=== PATIENT | female | born 1955 | race Caucasian/White ===

== ENCOUNTER → 2017-06-12 | Outpatient (CLI) | payer BC ==
--- NOTE | 2017-06-12 19:59 | BD ---
EXAMINATION TYPE: MG DEXA axial skeleton. DATE OF EXAM: 06/12/2017 COMPARISON: 09/09/2013 CLINICAL HISTORY: 62-year-old female osteoporosis Height: 61.2 IN Weight: 155 LBS FRAX RISK QUESTIONS: Alcohol (3 or more units per day): NO Family History (Parent hip fracture): NO Glucocorticoids (More than 3mos): NO (Ex: prednisone, prednisolone, methylprednisolone, dexamethasone, and hydrocortisone). History of Fracture in Adulthood: NO Secondary Osteoporosis: 1. Type 1 Diabetes: NO 2. Hyperthyroidism: NO 3. Menopause before 45: NO AGE 49 4. Malnutrition: NO 5. Chronic liver disease: NO Rheumatoid Arthritis: NO Current Tobacco Use: NO RISK FACTORS HISTORY OF: Active: YES Postmenopausal woman: AGE 49 Take estrogen and/or progesterone medications: NOT NOW How long: OFF AND ON AGE 16 - 29 MEDICATIONS: Thyroid Medications: YES Which medication: LEVOXYL How Lon + YEARS Additional Medications: VIT D, LEVOXYL, MOTRIN, NIACIN EXAM MEASUREMENTS: Bone mineral densitometry was performed using the [employer] System. Bone mineral density as measured about the Lumbar spine is: ----- L1-L4(G/cm2): 1.134 T Score Values are as follows: ----- L2: 0.2 ----- L3: -0.9 ----- L4: -0.3 ----- L1-L4: -0.4 Bone mineral density has: Increased 2.6% since study of: 09/09/2013 Bone mineral density about the R hip (g/cm2): 0.815 Bone mineral density about the L hip (g/cm2): 0.832 T Score values are as follows: -----R Neck: -1.6 -----L Neck: -1.5 -----R Total: -0.6 -----L Total: -1.1 Bone mineral density has: Decreased -0.8% since study of: 09/09/2013 IMPRESSION: Osteopenia (T Score between -2.5 and -1 as noted by T score values There is slightly increased risk of fracture and the patient may be considered for treatment. Re-Screen 2-5 years. NOTE: T-SCORE=SD OF THE YOUNG ADULT MEAN.
--- NOTE | 2017-06-14 10:02 | MM ---
Reason for exam: screening (asymptomatic). Last mammogram was performed 2 years and 3 months ago. History: Patient is postmenopausal and has history of other cancer at age 39. Cyst aspiration of the left breast, 2003. Took hormonal contraceptives for 12 years beginning at age 15. Physical Findings: A clinical breast exam by your physician is recommended on an annual basis and results should be correlated with mammographic findings. MG Screening Mammo w CAD Bilateral CC and MLO view(s) were taken. Prior study comparison: March 20, 2015, bilateral MG screening mammo w CAD. November 13, 2013, bilateral digital screening mammo w/CAD. The breast tissue is heterogeneously dense. This may lower the sensitivity of mammography. No significant changes when compared with prior studies. ASSESSMENT: Negative, BI-RAD 1 RECOMMENDATION: Routine screening mammogram of both breasts in 1 year.
== END | disposition home or self-care (01) ==
LOC: RADMAMWWP 14:56
PROVIDERS: ATTEND Internal Medicine Geriatric Medicine
DX: Z12.31 Encounter for screening mammogram for malignant neoplasm of breast (principal); M85.852 Other specified disorders of bone density and structure, left thigh; M85.851 Other specified disorders of bone density and structure, right thigh
CPT/HCPCS: 77080; G0202

== ENCOUNTER → 2019-06-20 | Outpatient (CLI) | payer BC, MEDICARE ==
--- NOTE | 2019-06-20 12:40 | ECHOS ---
STRESS ECHOCARDIOGRAM INDICATIONS: Chest pain. BASELINE HEART RATE: 69. BASELINE. BLOOD PRESSURE: 132/74 MAXIMUM HEART RATE: 137 MAXIMUM BLOOD PRESSURE: 186/87 85% MPHR: 132 100% MPHR: 155 METS: 11.7 MAXIMUM STAGE REACHED: 4 TOTAL EXERCISE TIME: 10:01 CLINICAL INFORMATION: Baseline EKG shows sinus rhythm, normal axis, normal intervals. Patient exercised on Hayden protocol for a total of 10 minutes achieving 11 METS, 85% of predicted maximum heart rate without chest pain. At peak exercise, occasional PVCs are noted. Baseline echo shows normal left ventricular size. wall motion, systolic function. Postexercise, there is normal hyperdynamic response of all segments of myocardium noted. CONCLUSION: 1. Excellent exercise tolerance. 2. Negative stress test by EKG criteria. 3. Negative stress echo. MMODL / IJN: [id number] /
== END ==
LOC: RADNMMAIN 09:12
PROVIDERS: ATTEND Internal Medicine Geriatric Medicine
DX: I20.9 Angina pectoris, unspecified (principal)
CPT/HCPCS: 93351

== ENCOUNTER → 2019-07-25 | Outpatient (CLI) | payer MEDICARE ==
--- NOTE | 2019-07-25 14:24 | BD ---
EXAMINATION TYPE: Axial Bone Density DATE OF EXAM: 07/25/2019 COMPARISON: 06.12.2017 CLINICAL HISTORY: 64 YR OLD FEMALE....ICD-10 CODE: M81.0 KNOWN OSTEOPOROSIS Height: 60.3 Weight: 152 FRAX RISK QUESTIONS: NOTHING TO NOTE HERE RISK FACTORS HISTORY OF: Active: YES Postmenopausal woman: YES, AT 51 YRS OLD, NO HORMONES Hyperparathyroidism: NO Adrenal Insufficiency: NO MEDICATIONS: Thyroid Medications: YES, SYNTHROID FOR ABOUT 25 YRS Additional Medications: VIT D, STATIN FOR CHOLESTEROL, XANAX, REFLUX MEDS Additional History: CHOLESTEROL, REFLUX EXAM MEASUREMENTS: Bone mineral densitometry was performed using the [employer] System. Bone mineral density as measured about the Lumbar spine is: ----- L1-L4(G/cm2): 1.208 T Score Values are as follows: ----- L1: 0.0 ----- L2: 0.7 ----- L3: -0.2 ----- L4: 0.3 ----- L1-L4: 0.2 Bone mineral density has: Increased 6.1% since study of: 06.12.2017 Bone mineral density about the R hip (g/cm2): 0.915 Bone mineral density about the L hip (g/cm2): 0.882 T Score values are as follows: -----R Neck: -1.7 -----L Neck: -1.7 -----R Total: -0.7 -----L Total: -1.0 Bone mineral density has: Decreased -0.1% since study of: 06.12.2017 FRAX%s: THERE IS A 9.4% CHANCE FOR A MAJOR OSTEOPOROTIC FX AND A 1.1% FOR HIP.....PROBABILITY FOR F X IN 10 YRS TIME IMPRESSION: Osteopenia (T Score between -2.5 and -1). There is slightly increased risk of fracture and the patient may be considered for treatment. Re-Screen 2-5 years. NOTE: T-SCORE=SD OF THE YOUNG ADULT MEAN.
--- NOTE | 2019-07-26 13:18 | MM ---
Reason for exam: screening (asymptomatic). Last mammogram was performed 2 years and 1 month ago. History: Patient is postmenopausal and has history of other cancer at age 39. Cyst aspiration of the left breast, 2003. Took hormonal contraceptives for 12 years beginning at age 15. Physical Findings: A clinical breast exam by your physician is recommended on an annual basis and results should be correlated with mammographic findings. MG 3D Screening Mammo W/Cad Bilateral CC and MLO view(s) were taken. Prior study comparison: June 12, 2017, bilateral MG screening mammo w CAD. March 20, 2015, bilateral MG screening mammo w CAD. There are scattered fibroglandular densities. There are benign appearing round calcifications bilaterally. There is no discrete abnormality. ASSESSMENT: Benign, BI-RAD 2 RECOMMENDATION: Routine screening mammogram of both breasts in 1 year.
== END | disposition home or self-care (01) ==
LOC: RADMAMWWP 12:34
PROVIDERS: ATTEND Internal Medicine Geriatric Medicine
DX: Z12.31 Encounter for screening mammogram for malignant neoplasm of breast (principal); M85.80 Other specified disorders of bone density and structure, unspecified site
CPT/HCPCS: 77063; 77067; 77080

== ENCOUNTER → 2019-08-13 | Outpatient (CLI) | payer MEDICARE ==
[2019-08-13 13:34] VITALS: BP 130/89; PULSE 62; RESP 18; TEMP 98.1
--- NOTE | 2019-08-13 14:21 | P.HPOB ---
History of Present Illness H&P Date: 08/13/19 Chief Complaint: The patient is here for her routine gynecologic exam. This is a 64-year-old 012 with an LMP of 2003. The patient is here to establish with this office. Her last pelvic exam was about 2-3 years ago. She is without gynecologic complaints and denies any postmenopausal bleeding. She has occasional hot flashes still that are not bothersome. Review of Systems Weight has been stable. She denies respiratory, cardiac and G.I. problems. She denies maltreatment or problems with falling. : she denies any significant problems with urinary leakage. Past Medical History Past Medical History: Cancer, GERD/Reflux, Hyperlipidemia, Thyroid Disorder Additional Past Medical History / Comment(s): Basal cell skin cancer. Osteopenia. 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 History of Any Multi-Drug Resistant Organisms: None Reported Past Surgical History: Breast Surgery, Uterine Ablation Additional Past Surgical History / Comment(s): Partial thyroidectomy, iliac stent, removal of skin cancer, left breast cyst removal, and colonoscopy (last 2016, next after 5yr). Past Psychological History: Anxiety Smoking Status: Former smoker Past Alcohol Use History: Daily (1 per day) Additional Past Alcohol Use History / Comment(s): Smoked between age 15 and 23. Past Drug Use History: None Reported Additional History: She has been since 1977 and is infrequently sexually active due to her 's health issues. She is a retired dental hygienist. - Past Family History Mother Family Medical History: Cancer Additional Family Medical History / Comment(s): Colon cancer and melanoma skin cancer. Maternal grandfather had colon cancer. Father Family Medical History: Cancer, Hypertension Additional Family Medical History / Comment(s): Lymphoma and leukemia. Medications and Allergies Home Medications Medication Instructions Recorded Confirmed Type ALPRAZolam [Xanax] 1 tab PO DAILY PRN 08/13/19 08/13/19 History Aspirin 81 mg PO DAILY 08/13/19 08/13/19 History Atorvastatin [Lipitor] 10 mg PO HS 08/13/19 08/13/19 History Ergocalciferol [Vitamin D2] 50,000 unit PO Q7D 08/13/19 08/13/19 History Famotidine [Pepcid] 20 mg PO HS 08/13/19 08/13/19 History Ibuprofen [Motrin] 600 mg PO Q8HR PRN 08/13/19 08/13/19 History Levothyroxine Sodium [Synthroid] 125 mcg PO DAILY 08/13/19 08/13/19 History Allergies Allergy/AdvReac Type Severity Reaction Status Date / Time sulfur dioxide Allergy Rash/Hives Unverified 08/13/19 13:30 Exam Vital Signs Temp Pulse Resp BP Pulse Ox 08/13/19 13:32 98.1 F 62 18 130/89 97 Intake and Output 08/12/19 08/13/19 08/13/19 22:59 06:59 14:59 Other: Weight 69.853 kg Height 5 feet 1 inch, weight 154 pounds, BMI 29.1. This is a well-developed well-nourished white female who is alert and oriented times 3 in no acute distress. HEENT: Within normal limits. NECK: Supple without mass or thyromegaly. CHEST AND LUNGS: Clear to auscultation. HEART: Regular rate and rhythm. BREASTS: Are without mass or discharge. AXILLARY EXAM: Negative for adenopathy. BACK: Negative for CVA tenderness. ABDOMEN: Soft, nontender, without palpable masses. PELVIC EXAM: Normal external genitalia with mild to moderate atrophy. Cervix and vagina appear normal with mild atrophy. There is no unusual discharge. There is no evidence of prolapse. The uterus is midposition, nongravid size and nontender. There are no palpable adnexal masses or tenderness. RECTAL EXAM: Rectovaginal exam is negative for mass or tenderness and is negative for occult blood. EXTREMITIES: Nontender. IMPRESSION: 1. 64-year-old menopausal female with normal gynecologic exam. 2. History of osteopenia. PLAN: 1. Pap smear was performed. We will try to obtain previous Pap smear records from Dr. Delgado's office. If we can demonstrate she has had adequate screening we will consider discontinuing Pap smears. She states she has never had cervical problems. 2. Self breast awareness was discussed with the patient. 3. Screening mammogram was recently done on 07/25/2019 and was benign. This will be repeated in 1 year. 4. Osteoporosis prevention was discussed. I have stressed the importance of adequate calcium, vitamin D and regular exercise. Recommended amounts of calcium and vitamin D were also discussed. Bone density test done on 07/25/2019 showed osteopenia of the hips. I have recommended that she repeat this in 2-3 years. 5. She does get flu shots in the fall. 6. The patient was advised to return in 1-2 years for her well woman examination.
--- NOTE | 2019-08-27 17:51 | P.PN ---
Progress Note - Text Progress Note Date: 08/27/19 OUTPATIENT FOLLOW-UP NOTE TEST(S)/RESULTS: Pap smear from 08/13/2019 was negative. METHOD OF NOTIFICATION: The patient was notified by phone. PATIENT COMMENTS: DIAGNOSIS: If Pap smear DISCUSSION: We are waiting on Pap smear reports from Dr. Delgado's office. If we can demonstrate adequate screening with no cervical problems, we can consider discontinuing Pap smear testing PLAN: The patient was advised to return in 1-2 years for her well woman examination.
== END | disposition home or self-care (01) ==
LOC: WWCWWP 13:11
PROVIDERS: ATTEND Obstetrics & Gynecology
DX: Z53.9 Procedure and treatment not carried out, unspecified reason (principal)

== ENCOUNTER → 2020-08-05 | Outpatient (CLI) | payer MEDICARE, OTHER ==
--- NOTE | 2020-08-05 15:02 | US ---
EXAMINATION TYPE: US kidneys/renal and bladder DATE OF EXAM: 08/05/2020 COMPARISON: NONE CLINICAL HISTORY: N20.0 Calculus of kidney. Pain EXAM MEASUREMENTS: Right Kidney: 10.2 x 4.3 x 3.6 cm Left Kidney: 10.4 x 5.4 x 4.2 cm Right Kidney: No hydronephrosis or masses seen Left Kidney: Lobulated upper pole. Bladder: wnl Bilateral Jets seen: Yes IMPRESSION: 1. Normal renal ultrasound
== END | disposition home or self-care (01) ==
LOC: RADUSWWP 14:19
PROVIDERS: ATTEND Internal Medicine Geriatric Medicine
DX: N20.0 Calculus of kidney (principal)
CPT/HCPCS: 76770

== ENCOUNTER → 2020-11-04 | Outpatient (CLI) | payer MEDICARE, OTHER ==
[2020-11-04 09:35] VITALS: BP 125/87; PULSE 72; RESP 16; TEMP 98
--- NOTE | 2020-11-04 10:15 | P.HPOB ---
History of Present Illness H&P Date: 11/04/20 Chief Complaint: The patient is here for her routine gynecologic exam and ma mmogram. This is a 65-year-old 012 with an LMP of 2003. The patient noticed a slight bulge coming from the vaginal opening about 2 weeks ago. She was wondering if it was her bladder that was bulging. The bulge felt somewhat firm and came to the opening. She has noticed a slightly slower's urinary stream compared to the past. She is otherwise without complaints. Review of Systems The patient has gained 4 pounds over the last year. She denies respiratory or cardiac problems. GI: Occasional constipation and occasional gastroesophageal reflux symptoms. Past Medical History Past Medical History: Cancer, GERD/Reflux, Hyperlipidemia, Thyroid Disorder Additional Past Medical History / Comment(s): Basal cell skin cancer. Osteopenia. PAST CANNON FIRE DIRECTION SPECIALIST HISTORY: She has no history of STDs. History of Any Multi-Drug Resistant Organisms: None Reported Past Surgical History: Breast Surgery, Uterine Ablation Additional Past Surgical History / Comment(s): Partial thyroidectomy, iliac stent, removal of skin cancer, left breast cyst removal, and colonoscopy (last 2016, next after 5yr). Past Psychological History: Anxiety Smoking Status: Former smoker Past Alcohol Use History: Daily (1-2 daily) Additional Past Alcohol Use History / Comment(s): Smoked between age 15 and 23. Past Drug Use History: None Reported Additional History: She has been since 1977. She is a retired dental hygienist. She now has 2 grandchildren who live out of state. - Past Family History Mother Family Medical History: Cancer Additional Family Medical History / Comment(s): Colon cancer and melanoma skin cancer. Maternal grandfather had colon cancer. Father Family Medical History: Cancer, Hypertension Additional Family Medical History / Comment(s): Lymphoma and leukemia. Medications and Allergies Home Medications Medication Instructions Recorded Confirmed Type ALPRAZolam [Xanax] 1 tab PO DAILY PRN 08/13/19 11/04/20 History Aspirin 81 mg PO DAILY 08/13/19 11/04/20 History Ergocalciferol [Vitamin D2] 50,000 unit PO Q7D 08/13/19 11/04/20 History Famotidine [Pepcid] 20 mg PO HS 08/13/19 11/04/20 History Ibuprofen [Motrin] 600 mg PO Q8HR PRN 08/13/19 11/04/20 History Levothyroxine Sodium [Synthroid] 125 mcg PO DAILY 08/13/19 11/04/20 History Rosuvastatin [Crestor] 10 mg PO HS 11/04/20 11/04/20 History Allergies Allergy/AdvReac Type Severity Reaction Status Date / Time sulfur dioxide Allergy Rash/Hives Unverified 11/04/20 09:27 Exam Vital Signs Temp Pulse Resp BP Pulse Ox 11/04/20 09:30 98.0 F 72 16 125/87 98 Intake and Output 11/03/20 11/04/20 11/04/20 22:59 06:59 14:59 Other: Weight 71.668 kg Height 5 feet 1 inch, weight 158 pounds, BMI 29.9. This is a well-developed well-nourished white female who is alert and oriented times 3 in no acute distress. HEENT: Within normal limits. NECK: Supple without mass or thyromegaly. CHEST AND LUNGS: Clear to auscultation. HEART: Regular rate and rhythm. BREASTS: Are without mass or discharge. AXILLARY EXAM: Negative for adenopathy. BACK: Negative for CVA tenderness. ABDOMEN: Soft, nontender, without palpable masses. PELVIC EXAM: Normal external genitalia with mild atrophy. Cervix and vagina appear normal mild atrophy. There is no unusual discharge. There is a grade 2 rectocele noted. There is no significant cystocele or uterine prolapse. The uterus is midposition, nongravid size and nontender. There are no palpable adnexal masses or tenderness. RECTAL EXAM: Rectovaginal exam is negative for mass or tenderness and is negative for occult blood. Rectovaginal exam does confirm a small rectocele. EXTREMITIES: Nontender. IMPRESSION: 1. 65-year-old menopausal female with grade 2 rectocele. 2. History of osteopenia PLAN: 1. Pap smears have been discontinued. 2. Self breast awareness was discussed with the patient. 3. Screening mammogram will be done today. 4. We had a long discussion regarding her rectocele. She states the day she noticed it, she was somewhat constipated. I have advised to that she avoid holding her stool longer than necessary. We will proceed with conservative management at this time. She will call if she is having greater problems. The ACOG FAQ handout on pelvic relaxation was given to the patient. We have discussed the option of surgical correction if she is having greater problems. 5. Osteoporosis prevention was discussed. I have stressed the importance of adequate calcium, vitamin D and regular exercise. Recommended amounts of calcium and vitamin D were also discussed. We will plan on repeating the bone density test in 1-2 years. Her last one was done in 2019. 6. The patient was advised to return in 1-2 years for her well woman examination.
--- NOTE | 2020-11-05 08:52 | MM ---
Reason for exam: screening (asymptomatic). Last mammogram was performed 1 year and 3 months ago. History: Patient is postmenopausal and has history of other cancer at age 39. Cyst aspiration of the left breast, 2004. Took hormonal contraceptives for 12 years beginning at age 15. Physical Findings: A clinical breast exam by your physician is recommended on an annual basis and results should be correlated with mammographic findings. MG 3D Screening Mammo W/Cad Bilateral CC and MLO view(s) were taken. XCCL view(s) were taken of the left breast. Prior study comparison: July 25, 2019, bilateral MG 3d screening mammo w/cad. June 12, 2017, bilateral MG screening mammo w CAD. There are scattered fibroglandular densities. There are benign appearing round calcifications bilaterally. There is no discrete abnormality. ASSESSMENT: Benign, BI-RAD 2 RECOMMENDATION: Routine screening mammogram of both breasts in 1 year.
== END ==
LOC: WWCWWP 09:16
PROVIDERS: ATTEND Obstetrics & Gynecology
DX: Z12.31 Encounter for screening mammogram for malignant neoplasm of breast (principal); N81.6 Rectocele; F41.9 Anxiety disorder, unspecified; E78.5 Hyperlipidemia, unspecified; Z87.891 Personal history of nicotine dependence; Z87.39 Personal history of other diseases of the musculoskeletal system and connective tissue; Z85.828 Personal history of other malignant neoplasm of skin; Z79.82 Long term (current) use of aspirin
CPT/HCPCS: 77063; 77067

== ENCOUNTER → 2021-11-16 | Outpatient (CLI) | payer MEDICARE, OTHER ==
[2021-11-16 14:50] VITALS: BP 125/82; PULSE 71; RESP 17; TEMP 97.9
--- NOTE | 2021-11-16 15:45 | P.HPOB ---
History of Present Illness H&P Date: 11/16/21 Chief Complaint: The patient is here for her routine gynecologic exam. This is a 66-year-old 012 with an LMP of 2003. The patient is without gynecologic complaints. She denies any problems from her known rectocele. Review of Systems Weight has been stable over the past year. Denies respiratory or cardiac problems. GI: Occasional cramping when she eats beef. Past Medical History Past Medical History: Cancer, GERD/Reflux, Hyperlipidemia, Thyroid Disorder Additional Past Medical History / Comment(s): Basal cell skin cancer. Osteopenia. PAST PRINTING SUPPLIES SALES REPRESENTATIVE HISTORY: She has no history of STDs. History of Any Multi-Drug Resistant Organisms: None Reported Past Surgical History: Breast Surgery, Uterine Ablation Additional Past Surgical History / Comment(s): Partial thyroidectomy, iliac stent, removal of skin cancer, left breast cyst removal, and colonoscopy (last 2016, next after 5yr). Past Psychological History: Anxiety Smoking Status: Former smoker Past Alcohol Use History: Daily (0-2 drinks per day) Additional Past Alcohol Use History / Comment(s): Smoked between age 15 and 23. Past Drug Use History: Marijuana Additional Drug Use History / Comment(s): Marijuana as a teenager only. No other drug use. 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 She has 3 grandchildren who live out of state. - Past Family History Mother Family Medical History: Cancer Additional Family Medical History / Comment(s): Colon cancer and melanoma skin cancer. Maternal grandfather had colon cancer. Father Family Medical History: Cancer, Hypertension Additional Family Medical History / Comment(s): Lymphoma and leukemia. Medications and Allergies Home Medications Medication Instructions Recorded Confirmed Type ALPRAZolam [Xanax] 1 tab PO DAILY PRN 08/13/19 11/16/21 History Aspirin 81 mg PO DAILY 08/13/19 11/16/21 History Ergocalciferol [Vitamin D2] 50,000 unit PO Q7D 08/13/19 11/16/21 History Famotidine [Pepcid] 20 mg PO HS 08/13/19 11/16/21 History Ibuprofen [Motrin] 600 mg PO Q8HR PRN 08/13/19 11/16/21 History Levothyroxine Sodium [Synthroid] 125 mcg PO DAILY 08/13/19 11/16/21 History Rosuvastatin [Crestor] 10 mg PO HS 11/04/20 11/16/21 History Fexofenadine HCl [Ree Allergy] 60 mg PO DAILY 11/16/21 11/16/21 History Ubidecarenone [Co Q-10] 20 mg PO DAILY 11/16/21 11/16/21 History Allergies Allergy/AdvReac Type Severity Reaction Status Date / Time sulfur dioxide Allergy Rash/Hives Unverified 11/16/21 14:45 Exam Vital Signs Temp Pulse Resp BP Pulse Ox 11/16/21 14:48 97.9 F 71 17 125/82 97 Intake and Output 11/16/21 11/16/21 11/16/21 06:59 14:59 22:59 Other: Weight 70.76 kg Height 5 foot 1 inch, weight 156 pounds, BMI 29.5. This is a well-developed well-nourished white female who is alert and oriented times 3 in no acute distress. HEENT: Within normal limits. NECK: Supple without mass or thyromegaly. CHEST AND LUNGS: Clear to auscultation. HEART: Regular rate and rhythm. BREASTS: Are without mass or discharge. AXILLARY EXAM: Negative for adenopathy. BACK: Negative for CVA tenderness. ABDOMEN: Soft, nontender, without palpable masses. PELVIC EXAM: Normal external genitalia with mild to moderate atrophy. Cervix and vagina appear normal with mild to moderate atrophy. There is no unusual discharge. There is a grade 1-2 rectocele. The uterus is midposition, nongravid size and nontender. There are no palpable adnexal masses or tenderness. RECTAL EXAM: Rectovaginal exam is negative for mass or tenderness and is negative for occult blood. Rectal exam confirms a small rectocele. EXTREMITIES: Nontender. IMPRESSION: 1. 66-year-old menopausal female with stable grade 1-2 rectocele. 2. History of osteopenia. PLAN: 1. Pap smears have been discontinued. 2. Self breast awareness was discussed with the patient. We have also discussed symptoms associated with inflammatory breast cancer. 3. Screening mammogram is scheduled for 12/15/2021. The patient has an order slip for this from her PCP. 4. Osteoporosis prevention was discussed. I have stressed the importance of adequate calcium, vitamin D and regular exercise. Recommended amounts of calcium and vitamin D were also discussed. She has a bone density test is scheduled for 12/15/2021. The order slip was given to the patient for this. 5. She is scheduled for a colonoscopy on 12/02/2021. 6. She has completed her Covid vaccination series and did receive a booster. 7. She was advised to return in one year for her annual well woman exam.
== END ==
LOC: WWCWWP 14:33
PROVIDERS: ATTEND Obstetrics & Gynecology
DX: Z01.419 Encounter for gynecological examination (general) (routine) without abnormal findings (principal); E78.5 Hyperlipidemia, unspecified; F41.9 Anxiety disorder, unspecified; Z87.891 Personal history of nicotine dependence; Z87.39 Personal history of other diseases of the musculoskeletal system and connective tissue; Z78.0 Asymptomatic menopausal state; Z88.8 Allergy status to other drugs, medicaments and biological substances

== ENCOUNTER → 2021-12-14 | Outpatient (CLI) | payer MEDICARE, OTHER ==
--- NOTE | 2021-12-14 16:47 | BD ---
EXAMINATION TYPE: Axial Bone Density DATE OF EXAM: 12/14/2021 CLINICAL HISTORY: 66 years year old Female. ICD-10 CODE: M81.0 AGE-RELATED OSTEOPOROSIS W/O CURRENT Height: 5 FT Weight: 152 FRAX RISK QUESTIONS: Alcohol (3 or more units per day): NO Family History (Parent hip fracture): NO Glucocorticoids (More than 3mos): NO (Ex: prednisone, prednisolone, methylprednisolone, dexamethasone, and hydrocortisone). History of Fracture in Adulthood: NO Secondary Osteoporosis: 1. Type 1 Diabetes: NO 2. Hyperthyroidism: NO 3. Menopause before 45: NO 4. Malnutrition: NO 5. Chronic liver disease: NO Rheumatoid Arthritis: NO Current Tobacco Use: NO RISK FACTORS HISTORY OF: Surgery to Spine/Hip(right/left)/Wrist (right/left): NO Family History of Osteoporosis: NO Active: YES Diet low in dairy products/other sources of calcium: NO Postmenopausal woman: YES Take estrogen and/or progesterone medications: NO Lost more than 2 inches in height since high school: YES Frequent falls: NO Poor Health: GOOD Hyperparathyroidism: NO Adrenal Insufficiency: NO MEDICATIONS: Thyroid Medications: YES Which medication: SYNTHROID How Long: APPROX 30 YEARS Additional Medications: SYNTHROID, STATIN, XANAX NEEDED, OMEPRAZOLE, ALFREDO, ASPIRIN, Additional History: EXAM MEASUREMENTS: Bone mineral densitometry was performed using the [employer] System. Bone mineral density as measured about the Lumbar spine is: ----- L1-L4(G/cm2): 1.160 T Score Values are as follows: ----- L1: -0.2 ----- L2: 0.6 ----- L3: -0.8 ----- L4: -0.2 ----- L1-L4: -0.2 Bone mineral density has: DECREASED -4.3 % since study of: 2019 Bone mineral density about the R hip (g/cm2): 0.763 Bone mineral density about the L hip (g/cm2): 0.791 T Score values are as follows: -----R Neck: -2.0 -----L Neck: -1.8 -----R Total: -0.8 -----L Total: -1.3 Bone mineral density has: DECREASED -2.7 % since study of: 2020 FRAX%s: The graph provided illustrates a 11.1 % chance for a major osteoporotic fx and a 1.8 % chance for the hips probability for fx in 10 years time. IMPRESSION: Osteopenia (T Score between -2.5 and -1). There is slightly increased risk of fracture and the patient may be considered for treatment. Re-Screen 2-5 years. NOTE: T-SCORE=SD OF THE YOUNG ADULT MEAN.
--- NOTE | 2021-12-15 13:22 | P.PN ---
Progress Note - Text Progress Note Date: 12/15/21 OUTPATIENT FOLLOW-UP NOTE TEST(S)/RESULTS: Bone density test done on 12/14/2021 showed osteopenia METHOD OF NOTIFICATION: A message with this result was left on the patient's voicemail. PATIENT COMMENTS: DIAGNOSIS: Osteopenia DISCUSSION: In the message I explained that there was a slight decrease in bone density from her 2020 test. I have stressed the importance of adequate calcium, vitamin D, and regular exercise. PLAN: Repeat bone density testing in 2 years.
--- NOTE | 2021-12-15 18:53 | MM ---
Reason for Exam: Screening (asymptomatic). Last mammogram was performed 1 year(s) and 1 month(s) ago. Patient History: Menarche at age 12. First Full-Term at age 27. Postmenopausal. Other cancer, age 39. Hormonal Contraceptives for 12 years from age 15 until age 30. 2004, Cyst Aspiration on the Left side. Risk Values: Sonya 5 year model risk: 1.9%. NCI Lifetime model risk: 6.4%. Prior Study Comparison: 06/12/2017 Bilateral Screening Mammogram, [facility]. 07/25/2019 Bilateral Screening Mammogram, [facility]. 11/04/2020 Bilateral Screening Mammogram, [facility]. Tissue Density: There are scattered fibroglandular densities. Findings: Analyzed By CAD. There is no suspicious group of microcalcifications or new suspicious mass in either breast. Overall Assessment: Benign, BI-RAD 2 Management: Screening Mammogram of both breasts in 1 year. A clinical breast exam by your physician is recommended on an annual basis and results should be correlated with mammographic findings. Electronically signed and approved by: Roberto Jorge D.O. Radiologis
== END | disposition home or self-care (01) ==
LOC: RADMAMWWP 14:53
PROVIDERS: ATTEND Internal Medicine Geriatric Medicine
DX: Z12.31 Encounter for screening mammogram for malignant neoplasm of breast (principal); M85.89 Other specified disorders of bone density and structure, multiple sites
CPT/HCPCS: 77063; 77067; 77080

== ENCOUNTER → 2022-12-20 | Outpatient (CLI) | payer MEDICARE, OTHER ==
[2022-12-20 10:52] VITALS: BP 115/76; PULSE 63; RESP 16; TEMP 97.8
--- NOTE | 2022-12-20 11:26 | P.HPOB ---
History of Present Illness H&P Date: 12/20/22 Chief Complaint: The patient is here for her routine gynecologic exam and ma mmogram. This is a 67-year-old 012 with an LMP of 2003. The patient is without gynecologic complaints. She has a known rectocele, but this has not been causing any significant problems. Review of Systems The patient has lost 4 pounds over the last year. She denies respiratory, cardiac, or G.I. problems. Past Medical History Past Medical History: Asthma, Cancer, GERD/Reflux, Hyperlipidemia, Thyroid Disorder Additional Past Medical History / Comment(s): Basal cell skin cancer. GERD/exercise induced asthma. Osteopenia. 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 History of Any Multi-Drug Resistant Organisms: None Reported Past Surgical History: Breast Surgery, Uterine Ablation Additional Past Surgical History / Comment(s): Partial thyroidectomy, iliac stent, removal of skin cancer, left breast cyst removal, and colonoscopy (last 2021, next after 5yr). Past Psychological History: Anxiety Smoking Status: Former smoker Past Alcohol Use History: Occasional (0-2 per day.) Additional Past Alcohol Use History / Comment(s): Smoked between age 15 and 23. Past Drug Use History: Marijuana Additional Drug Use History / Comment(s): Marijuana as a teenager only. No other drug use. 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 She has 3 grandchildren who live out of state. - Past Family History Mother Family Medical History: Cancer Additional Family Medical History / Comment(s): Colon cancer and melanoma skin cancer. Maternal grandfather had colon cancer. Father Family Medical History: Cancer, Hypertension Additional Family Medical History / Comment(s): Lymphoma and leukemia. Medications and Allergies Home Medications Medication Instructions Recorded Confirmed Type ALPRAZolam [Xanax] 1 tab PO DAILY PRN 08/13/19 12/20/22 History Aspirin 81 mg PO DAILY 08/13/19 12/20/22 History Ergocalciferol [Vitamin D2] 50,000 unit PO Q7D 08/13/19 12/20/22 History Ibuprofen [Motrin] 600 mg PO Q8HR PRN 08/13/19 12/20/22 History Levothyroxine Sodium [Synthroid] 125 mcg PO DAILY 08/13/19 12/20/22 History Rosuvastatin [Crestor] 10 mg PO HS 11/04/20 12/20/22 History Fexofenadine HCl [Ree Allergy] 60 mg PO DAILY 11/16/21 12/20/22 History Dimas/D3/Mag11/Zinc/Occupational Health Physician/Zak/Bor 1 tab PO DAILY 12/20/22 12/20/22 History [Caltrate 600+D Plus Tablet] Omeprazole 20 mg PO DAILY 12/20/22 12/20/22 History Allergies Allergy/AdvReac Type Severity Reaction Status Date / Time sulfur dioxide Allergy Rash/Hives Unverified 12/20/22 10:47 Exam Vital Signs Temp Pulse Resp BP Pulse Ox 12/20/22 10:50 97.8 F 63 16 115/76 97 Intake and Output 12/19/22 12/20/22 12/20/22 22:59 06:59 14:59 Other: Weight 68.946 kg Height 5 foot 1 inch, weight 152 pounds, BMI 28.7. This is a well-developed well-nourished white female who is alert and oriented times 3 in no acute distress. HEENT: Within normal limits. NECK: Supple without mass or thyromegaly. CHEST AND LUNGS: Clear to auscultation. HEART: Regular rate and rhythm. BREASTS: Are without mass or discharge. AXILLARY EXAM: Negative for adenopathy. BACK: Negative for CVA tenderness. ABDOMEN: Soft, nontender, without palpable masses. PELVIC EXAM: Normal external genitalia with mild to moderate atrophy. Cervix and vagina appear normal mild atrophy. There is no unusual discharge. There is a stable grade 2 rectocele. The uterus is midposition, nongravid size and nontender. There are no palpable adnexal masses or tenderness. RECTAL EXAM: Vaginal exam is negative for mass or tenderness and is negative for occult blood. There is also confirms a small rectocele. EXTREMITIES: Nontender. IMPRESSION: 1. 67-year-old menopausal female with stable grade 2 rectocele which is not causing any significant problems. 2. History of osteopenia. Her last bone density test was done on 12/14/2021. PLAN: 1. Pap smears have been discontinued. 2. Self breast awareness was discussed with the patient. We have also discussed symptoms associated with inflammatory breast cancer. 3. Screening mammogram will be done today. 4. Osteoporosis prevention was discussed. I have stressed the importance of adequate calcium, vitamin D and regular exercise. Recommended amounts of calcium and vitamin D were also discussed. We will plan on repeating the bone density test in 1 year. 5. She was advised to return in one year for her annual well woman exam.
--- NOTE | 2022-12-21 07:24 | MM ---
Reason for Exam: Screening (asymptomatic). Last mammogram was performed 1 year(s) and 1 month(s) ago. Patient History: Menarche at age 12. First Full-Term at age 27. Postmenopausal. Patient has history of breast feeding. Hormonal Contraceptives for 12 years from age 15 until age 30. 2004, Cyst Aspiration on the Left side. Risk Values: Sonya 5 year model risk: 1.9%. NCI Lifetime model risk: 6.2%. Prior Study Comparison: 07/25/2019 Bilateral Screening Mammogram, [facility]. 11/04/2020 Bilateral Screening Mammogram, [facility]. 12/14/2021 Bilateral MG 3D screening mammo w/cad, [facility]. Tissue Density: The breast tissue is heterogeneously dense. This may lower the sensitivity of mammography. Findings: Analyzed By CAD. There is no suspicious group of microcalcifications or new suspicious mass in either breast. Benign-appearing round calcifications within both breasts. Overall Assessment: Benign, BI-RAD 2 Management: Screening Mammogram of both breasts in 1 year. A clinical breast exam by your physician is recommended on an annual basis and results should be correlated with mammographic findings. Electronically signed and approved by: Anthony Franco D.O.
== END ==
LOC: WWCWWP 10:40
PROVIDERS: ATTEND Obstetrics & Gynecology
DX: Z01.419 Encounter for gynecological examination (general) (routine) without abnormal findings (principal); Z78.0 Asymptomatic menopausal state; Z80.8 Family history of malignant neoplasm of other organs or systems; J45.909 Unspecified asthma, uncomplicated; K21.9 Gastro-esophageal reflux disease without esophagitis; E78.5 Hyperlipidemia, unspecified; E07.9 Disorder of thyroid, unspecified; Z85.9 Personal history of malignant neoplasm, unspecified; Z88.2 Allergy status to sulfonamides; Z87.891 Personal history of nicotine dependence; Z79.890 Hormone replacement therapy
CPT/HCPCS: 77063; 77067

== ENCOUNTER → 2024-01-02 | Outpatient (CLI) | payer MEDICARE, OTHER ==
[2024-01-02 09:43] VITALS: BP 119/86; PULSE 81; RESP 17; TEMP 98.4
--- NOTE | 2024-01-02 10:05 | P.HPOB ---
History of Present Illness H&P Date: 01/02/24 Chief Complaint: The patient is here for her routine gynecologic exam and ma mmogram. This is a 68-year-old -0-1-2 with an LMP of 2003. The patient is without gynecologic complaints. She wonders if the small rectocele that she has causes issues with passing gas unexpectedly. She is otherwise without gynecologic complaints. Review of Systems The patient's weight has been stable over the last year. She denies respiratory, cardiac, or G.I. problems. Past Medical History Past Medical History: Asthma, Cancer, GERD/Reflux, Hyperlipidemia, Thyroid Disorder Additional Past Medical History / Comment(s): Basal cell skin cancer. GERD/exercise induced asthma. Osteopenia. 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 History of Any Multi-Drug Resistant Organisms: None Reported Past Surgical History: Breast Surgery, Uterine Ablation Additional Past Surgical History / Comment(s): Partial thyroidectomy, iliac stent, removal of skin cancer, left breast cyst removal, and colonoscopy (last 2021, next after 5yr). Past Psychological History: Anxiety Smoking Status: Former smoker Past Alcohol Use History: Occasional (0-1 drink per day.) Additional Past Alcohol Use History / Comment(s): Smoked between age 15 and 23. Past Drug Use History: Marijuana Additional Drug Use History / Comment(s): Marijuana as a teenager only. No other drug use. 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 She has 3 grandchildren who live out of state. - Past Family History Mother Family Medical History: Cancer Additional Family Medical History / Comment(s): Colon cancer and melanoma skin cancer. Maternal grandfather had colon cancer. Father Family Medical History: Cancer, Hypertension Additional Family Medical History / Comment(s): Lymphoma and leukemia. Medications and Allergies Home Medications Medication Instructions Recorded Confirmed Type ALPRAZolam [Xanax] 1 tab PO DAILY PRN 08/13/19 12/20/22 History Aspirin 81 mg PO DAILY 08/13/19 12/20/22 History Ergocalciferol [Vitamin D2] 50,000 unit PO Q7D 08/13/19 12/20/22 History Ibuprofen [Motrin] 600 mg PO Q8HR PRN 08/13/19 12/20/22 History Levothyroxine Sodium [Synthroid] 125 mcg PO DAILY 08/13/19 12/20/22 History Rosuvastatin [Crestor] 10 mg PO HS 11/04/20 12/20/22 History Omeprazole 20 mg PO DAILY 12/20/22 12/20/22 History Calcium Carbonate [Tums] 2 tab PO DAILY 01/02/24 01/02/24 History Cetirizine HCl [Zyrtec] 10 mg PO DAILY 01/02/24 01/02/24 History Cholecalciferol (Vitamin D3) 1 tab PO DAILY 01/02/24 01/02/24 History [Vitamin D3 (1250 Mcg = 50,000 Iu)] Ubidecarenone [Co Q-10] 1 cap PO DAILY 01/02/24 01/02/24 History Allergies Allergy/AdvReac Type Severity Reaction Status Date / Time sulfur dioxide Allergy Rash/Hives Unverified 01/02/24 09:38 Exam Vital Signs Temp Pulse Resp BP Pulse Ox 01/02/24 09:41 98.4 F 81 17 119/86 97 Intake and Output 01/01/24 01/02/24 01/02/24 22:59 06:59 14:59 Other: Weight 68.946 kg Height 5 feet 0 inches, weight 152 pounds, BMI 29.7. This is a well-developed well-nourished white female who is alert and oriented times 3 in no acute distress. HEENT: Within normal limits. NECK: Supple without mass or thyromegaly. CHEST AND LUNGS: Clear to auscultation. HEART: Regular rate and rhythm. BREASTS: Are without mass or discharge. AXILLARY EXAM: Negative for adenopathy. BACK: Negative for CVA tenderness. ABDOMEN: Soft, nontender, without palpable masses. PELVIC EXAM: Normal external genitalia with mild atrophy. Cervix and vagina appear normal with mild to moderate atrophy. There is no unusual discharge. There is a stable grade 1-2 rectocele. There is no other significant prolapse noted. The uterus is midposition, nongravid size and nontender. There are no palpable adnexal masses or tenderness. RECTAL EXAM: Rectovaginal exam is negative for mass or tenderness and is negative for occult blood. EXTREMITIES: Nontender. IMPRESSION: 1. 68-year-old menopausal female with stable grade 2 rectocele. 2. History of osteopenia. PLAN: 1. Pap smears have been discontinued. 2. Self breast awareness was discussed with the patient. We have also discussed symptoms associated with inflammatory breast cancer. 3. Screening mammogram will be done today. 4. Osteoporosis prevention was discussed. I have stressed the importance of adequate calcium, vitamin D and regular exercise. Recommended amounts of calcium and vitamin D were also discussed. Bone density testing will be done today. 5. She was advised to return in one year for her annual well woman exam.
--- NOTE | 2024-01-03 10:21 | MM ---
Reason for Exam: Screening (asymptomatic). Last screening mammogram was performed 12 month(s) ago. Patient History: Menarche at age 12. First Full-Term at age 27. Postmenopausal. Patient has history of breast feeding. Hormonal Contraceptives for 12 years from age 15 until age 30. 2004, Cyst Aspiration on the Left side. Risk Values: Sonya 5 year model risk: 1.9%. NCI Lifetime model risk: 5.9%. Prior Study Comparison: 11/04/2020 Bilateral Screening Mammogram, [facility]. 12/14/2021 Bilateral MG 3D screening mammo w/cad, [facility]. 12/20/2022 Bilateral MG 3D screening mammo w/cad, [facility]. Tissue Density: The breasts are heterogeneously dense, which may obscure small masses. Findings: Analyzed By CAD. Asymmetric density outer left CC view 4.2 cm from the nipple. Additional views are recommended. No suspicious calcifications within either breast. Overall Assessment: Incomplete: need additional imaging evaluation, BI-RAD 0 Management: Diagnostic Mammogram of the left breast. . Patient should continue monthly self-breast exams. A clinical breast exam by your physician is recommended on an annual basis. This exam should not preclude additional follow-up of suspicious palpable abnormalities. Note on Sonya scores and lifetime risk: 1. A Sonya score greater than 3% is considered moderate risk. If this is the case, consider specialist referral to assess eligibility for a risk reducing agent. 2. If overall lifetime risk for the development of breast cancer is 20% or higher, the patient may qualify for future screening with alternating mammogram and breast MRI. Electronically signed and approved by: Sly Martinez M.D. Radiologis
--- NOTE | 2024-01-03 17:40 | BD ---
EXAMINATION TYPE: Axial Bone Density DATE OF EXAM: 01/02/2024 CLINICAL HISTORY: 68 years old Female. ICD-10 CODE: Z780 POST DODIE WITHOUT HRT Height: 60.5 in Weight: 151 lbs MEDICATIONS: Thyroid Medications: yes Which medication: Synthroid How Lon+ years EXAM MEASUREMENTS: Bone mineral densitometry was performed using the [employer] System. Bone mineral density as measured about the Lumbar spine is: ----- L1-L4(G/cm2): 1.141 T Score Values are as follows: ----- L1: -0.4 ----- L2: 0.1 ----- L3: -0.6 ----- L4: -0.4 ----- L1-L4: -0.3 Z Score Values are as follows: ----- L1: 1.1 ----- L2: 1.6 ----- L3: 1.0 ----- L4: 1.1 ----- L1-L4: 1.2 Bone mineral density has: Decreased -1.6% since study of: 12/14/2021 Bone mineral density about the R hip (g/cm2): 0.879 Bone mineral density about the L hip (g/cm2): 0.830 T Score values are as follows: -----R Neck: -2.4 -----L Neck: -2.1 -----R Total: -1.0 -----L Total: -1.4 Z Score values are as follows: -----R Neck: -0.8 -----L Neck: -0.5 -----R Total: 0.3 -----L Total: -0.1 Bone mineral density has: Decreased -2.3% since study of: 12/14/2021 FRAX%s: The graph provided illustrates a 13.7% chance for a major osteoporotic fx and a 3.2% chance f or the hips probability for fx in 10 years time. IMPRESSION: Osteopenia (T Score between -2.5 and -1). There is slightly increased risk of fracture and the patient may be considered for treatment. Re-Screen 2-5 years. NOTE: T-SCORE=SD OF THE YOUNG ADULT MEAN.
== END ==
LOC: WWCWWP 09:18
PROVIDERS: ATTEND Obstetrics & Gynecology
DX: Z12.31 Encounter for screening mammogram for malignant neoplasm of breast (principal); M85.80 Other specified disorders of bone density and structure, unspecified site; N81.6 Rectocele; Z78.0 Asymptomatic menopausal state; Z87.891 Personal history of nicotine dependence; Z88.2 Allergy status to sulfonamides
CPT/HCPCS: 77063; 77067; 77080

== ENCOUNTER → 2024-01-05 | Outpatient (CLI) | payer MEDICARE, OTHER ==
--- NOTE | 2024-01-05 08:41 | MM ---
Reason for Exam: Additional evaluation requested from abnormal screening. Last screening mammogram was performed less than 1 month ago. Patient History: Menarche at age 12. First Full-Term at age 27. Postmenopausal. Patient has history of breast feeding. Hormonal Contraceptives for 12 years from age 15 until age 30. 2004, Cyst Aspiration on the Left side. Risk Values: Sonya 5 year model risk: 1.9%. NCI Lifetime model risk: 5.9%. Prior Study Comparison: 12/14/2021 Bilateral MG 3D screening mammo w/cad, [facility]. 12/20/2022 Bilateral MG 3D screening mammo w/cad, [facility]. 01/02/2024 Bilateral MG 3D screening mammo w/cad, [facility]. Tissue Density: Left: There are scattered areas of fibroglandular density. Findings: Analyzed By CAD. The pattern is symmetrical. Impression no persistent suspicious density is identified. Mediolateral view appears unremarkable. No suspicious groups of microcalcifications, spiculated or lobular masses, architectural distortion or other secondary signs of malignancy are mammographically apparent. Overall Assessment: Probably benign, BI-RAD 3 Management: Diagnostic Mammogram of the left breast in 6 months. A negative mammogram report should not preclude additional follow up of suspicious palpable abnormalities. Patient should continue monthly self breast exam. A clinical breast exam by your physician is recommended on an annual basis and results should be correlated with mammographic findings. Note on Sonya scores and lifetime risk: 1. A Sonya score greater than 3% is considered moderate risk. If this is the case, consider specialist referral to assess eligibility for a risk reducing agent. 2. If overall lifetime risk for the development of breast cancer is 20% or higher, the patient may qualify for future screening with alternating mammogram and breast MRI. Electronically signed and approved by: Roberto Jorge D.O. Radiologis
--- NOTE | 2024-01-09 15:17 | P.PN ---
Progress Note - Text Progress Note Date: 01/09/24 OUTPATIENT FOLLOW-UP NOTE TEST(S)/RESULTS: Test results from 01/02/2024 include mammogram that requires a left diagnostic mammogram and a bone density test showing osteopenia. The left diagnostic mammogram was done on 01/05/2024 and was probably benign. A 6-month diagnostic left mammogram was recommended. METHOD OF NOTIFICATION: The patient was notified by phone on 01/09/2024. PATIENT COMMENTS: The patient states she already received the verbal results from her left breast workup on 01/05/2024. She prefers not to start medication for her osteopenia. DIAGNOSIS: Probably benign mammogram with left breast workup. Osteopenia. DISCUSSION: We have discussed how she has lost bone density over the past 2 bone density test from 2019. I have offered her prescription medication for weakening bones, but she prefers to go without medication at this time. I have stressed the importance of adequate calcium, vitamin D, and regular exercise. We will plan on repeating the bone density test in 2 years. She understands that if there is any more decline with the hip measurements, that she will p robably be in the osteoporosis range at that time PLAN: She was advised to return in one year for her annual well woman exam. As above.
== END | disposition home or self-care (01) ==
LOC: RADMAMWWP 08:01
PROVIDERS: ATTEND Obstetrics & Gynecology
DX: R92.322 Mammographic fibroglandular density, left breast (principal); R92.8 Other abnormal and inconclusive findings on diagnostic imaging of breast; Z78.0 Asymptomatic menopausal state
CPT/HCPCS: 77065; G0279; 77061

== ENCOUNTER → 2024-06-19 | Outpatient (CLI) | payer MEDICARE, OTHER ==
--- NOTE | 2024-06-19 13:04 | CA ---
Stress Echo Report Janet Diaz Age: 69 Gender: F : 1955 Exam Date: 06/19/2024 10:23 Exam Location: [facility] Ht (in): Wt (lb): Ordering Physician: Yonis Toro MD Referring Physician: YONIS TORO,, Dust Collector Operator: Anusha Hammer RDCS Technologist Procedure CPT: Indication: I20.9 Angina ICD-9 Codes: Rhythm: Patient History: Shortness of breath and family history of heart disease. Cardiac Medications: Medications in past 24 hours: Contrast: Stress Results Protocol: Hayden Total dose(mL): Exercise Duration (min:sec): 7:[address] Depression (mm): Angina Score: Collazo Score: METS: 8.5 Resting HR: 69 Resting BP: 110 / 70 Peak HR: 156 Peak BP: 184 / 87 Max Predicted HR: 150 104 % Max Predicted HR Target HR: 128 Double Product: [id number] Stress Summary: BP Response: Reason for Termination: Maximal effort/unable to continue Cardiac Symptoms: No symptoms ECG Analysis Resting ECG: Stress ECG: Arrhythmia: Echo Analysis Resting Echo: Peak Echo Analysis: MEASUREMENTS (Male/Female) Normal Values CONCLUSIONS Patient underwent exercise stress echo with a Hayden protocol treadmill stress test. Patient exercised into Stage 3 for a total of 7 minutes and 10 seconds reaching a total of 8.5 METS. Patient's maximum heart rate was 156 which represented 104% age- predicted maximum heart rate. Stress EKG portion: At baseline patient's EKG showed normal sinus rhythm, normal axis, T-wave inversion in lead 3 aVF, V3 and V4. At peak exercise, EKG showed mild exaggeration of baseline EKG abnormalities. Stress echo portion: 2-D echocardiogram was performed in the parasternal long, personal short, apical 2 and apical four-chamber views at rest, peak exercise and in recovery. At baseline, echocardiogram showed left ventricular ejection fraction 55% without wall motion abnormalities. With peak exercise, echocardiogram shows improvement in left ventricular ejection fraction, increase contractility, decrease in left ventricular end systolic dimension without wall motion abnormalities consistent with a normal response to exercise. Conclusions: 1. Nonspecific stress EKG portion second baseline EKG abnormalities 2. Normal echo response to exercise without evidence of inducible ischemia. 3. Good exercise capacity. Dr. Osito Ferrara DO (Electronically Signed) Final Date: 19 June 2024 13:03
== END | disposition home or self-care (01) ==
LOC: RADNMMAIN 10:04
PROVIDERS: ATTEND Internal Medicine Geriatric Medicine
DX: I20.9 Angina pectoris, unspecified (principal); R94.31 Abnormal electrocardiogram [ECG] [EKG]; R06.02 Shortness of breath
CPT/HCPCS: 93351

== ENCOUNTER → 2024-07-08 | Outpatient (CLI) | payer MEDICARE, OTHER ==
--- NOTE | 2024-07-08 11:13 | MM ---
Reason for Exam: Follow-up at short interval from prior study. Last screening mammogram was performed 6 month(s) ago. Patient History: Menarche at age 12. First Full-Term at age 27. Postmenopausal. Patient has history of breast feeding. Hormonal Contraceptives for 12 years from age 15 until age 30. 2004, Cyst Aspiration on the Left side. Risk Values: Sonya 5 year model risk: 1.9%. NCI Lifetime model risk: 5.6%. Prior Study Comparison: 12/20/2022 Bilateral MG 3D screening mammo w/cad, [facility]. 01/02/2024 Bilateral MG 3D screening mammo w/cad, [facility]. 01/05/2024 Left MG 3D work up w/cad , [facility]. Tissue Density: Left: There are scattered areas of fibroglandular density. Findings: Analyzed By CAD. Lateral asymmetric density left cc view anterior to middle depth has an appearance unchanged from older priors, slightly less pronounced compared to the screening 6 months ago. No significant change from prior exams. Overall Assessment: Benign, BI-RAD 2 Management: Screening Mammogram of both breasts in 6 months. Results were given to the patient verbally at the time of exam. Patient should continue monthly self-breast exams. A clinical breast exam by your physician is recommended on an annual basis. This exam should not preclude additional follow-up of suspicious palpable abnormalities. Note on Sonya scores and lifetime risk: 1. A Sonya score greater than 3% is considered moderate risk. If this is the case, consider specialist referral to assess eligibility for a risk reducing agent. 2. If overall lifetime risk for the development of breast cancer is 20% or higher, the patient may qualify for future screening with alternating mammogram and breast MRI. [facility], , 07/08/2024 11:10 AM. Electronically signed and approved by: Indra Arreaga M.D. Radiologist
== END | disposition home or self-care (01) ==
LOC: RADMAMWWP 10:39
PROVIDERS: ATTEND Obstetrics & Gynecology
DX: R92.8 Other abnormal and inconclusive findings on diagnostic imaging of breast (principal); R92.323 Mammographic fibroglandular density, bilateral breasts; Z78.0 Asymptomatic menopausal state
CPT/HCPCS: 77065; G0279; 77061

== ENCOUNTER → 2025-01-21 | Outpatient (CLI) | payer MEDICARE, OTHER ==
[2025-01-21 09:44] VITALS: BP 139/88; PULSE 66; RESP 16; TEMP 97.8
--- NOTE | 2025-01-21 10:17 | P.HPOB ---
History of Present Illness H&P Date: 01/21/25 Chief Complaint: The patient is here for her routine gynecologic exam and ma mmogram. This is a 69-year-old -0-1-2 with an LMP of 2003. The patient is complaining of some vulvar itching on the inner side of the vulva. She denies any vaginal discharge or vaginal odor. She denies any bulge from the vagina. She states the itching did get worse when she was riding her bike. She is otherwise without gynecologic complaints and denies any postmenopausal bleeding. Review of Systems She has lost about 5 pounds over the past year. She denies respiratory or cardiac problems. GI: Occasional gastric reflux, but this is decreased after she stopped drinking alcohol. Past Medical History Past Medical History: Asthma, Cancer, GERD/Reflux, Hyperlipidemia, Thyroid Disorder Additional Past Medical History / Comment(s): Basal/squamous cell skin cancer. GERD/exercise induced asthma. Osteopenia. PAST INVESTIGATOR FRAUD HISTORY: She has no history of STDs. History of Any Multi-Drug Resistant Organisms: None Reported Past Surgical History: Breast Surgery, Uterine Ablation Additional Past Surgical History / Comment(s): Partial thyroidectomy, iliac stent, removal of skin cancer, left breast cyst removal, and colonoscopy (last 2021, next after 5yr). Past Psychological History: Anxiety Smoking Status: Former smoker Past Alcohol Use History: None Reported (Stopped drinking alcohol because it made her gastric reflux worse.) Additional Past Alcohol Use History / Comment(s): Smoked between age 15 and 23. Past Drug Use History: Marijuana (Only as a teenager.) Additional Drug Use History / Comment(s): Marijuana as a teenager only. No other drug use. 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 She has 3 grandchildren. - Past Family History Mother Family Medical History: Cancer Additional Family Medical History / Comment(s): Colon cancer and melanoma skin cancer. Maternal grandfather had colon cancer. Father Family Medical History: Cancer, Hypertension Additional Family Medical History / Comment(s): Lymphoma and leukemia. Medications and Allergies Home Medications Medication Instructions Recorded Confirmed Type ALPRAZolam [Xanax] 1 tab PO DAILY PRN 08/13/19 01/21/25 History Aspirin 81 mg PO DAILY 08/13/19 01/21/25 History Ergocalciferol [Vitamin D2] 50,000 unit PO Q7D 08/13/19 01/21/25 History Levothyroxine Sodium [Synthroid] 125 mcg PO DAILY 08/13/19 01/21/25 History Rosuvastatin [Crestor] 10 mg PO HS 11/04/20 01/21/25 History Calcium Carbonate [Tums] 2 tab PO DAILY 01/02/24 01/21/25 History Cetirizine HCl [Zyrtec] 10 mg PO DAILY 01/02/24 01/21/25 History Cholecalciferol (Vitamin D3) 1 tab PO DAILY 01/02/24 01/21/25 History [Vitamin D3 (1250 Mcg = 50,000 Iu)] Ubidecarenone [Co Q-10] 1 cap PO DAILY 01/02/24 01/21/25 History Famotidine [Pepcid] 20 mg PO DAILY 01/21/25 01/21/25 History Allergies Allergy/AdvReac Type Severity Reaction Status Date / Time sulfur dioxide Allergy Rash/Hives Unverified 01/21/25 09:41 Exam Vital Signs Temp Pulse Resp BP Pulse Ox 01/21/25 09:42 97.8 F 66 16 139/88 97 Intake and Output 01/20/25 01/21/25 01/21/25 22:59 06:59 14:59 Other: Weight 66.678 kg Height 5 feet 0 inches, weight 147 pounds, BMI 28.7. This is a well-developed well-nourished white female who is alert and oriented times 3 in no acute distress. HEENT: Within normal limits. NECK: Supple without mass or thyromegaly. CHEST AND LUNGS: Clear to auscultation. HEART: Regular rate and rhythm. BREASTS: Are without mass or discharge. AXILLARY EXAM: Negative for adenopathy. BACK: Negative for CVA tenderness. ABDOMEN: Soft, nontender, without palpable masses. PELVIC EXAM: External genitalia reveals moderate atrophy without lesions. Upon touching the inner part of the labia minora, she states this is where she has been experiencing some pruritus. There is no significant pallor or excoriation. Cervix and vagina appear normal with mild atrophy. There is no unusual discharge. There is a grade 1-2 rectocele which is stable.. The uterus is midposition, nongravid size and nontender. There are no palpable adnexal masses or tenderness. RECTAL EXAM: Rectovaginal exam is negative for mass or tenderness and is negative for occult blood. There is mild perianal erythema without pallor. EXTREMITIES: Nontender. IMPRESSION: 1. 77-year-old menopausal female with labia minora pruritus and evidence of mild inflammation in the perianal area. This does not have the typical appearance of lichen sclerosis. Differential diagnosis will include something irritating the skin and perianal areas as well as some form of vaginitis. 2. History of osteopenia. 3. Stable grade 2 rectocele which is asymptomatic. PLAN: 1. Pap smears have been discontinued. 2. Self breast awareness was discussed with the patient. We have also d iscussed symptoms associated with inflammatory breast cancer. 3. Screening mammogram will be done today. 4. Affirm vaginitis panel was obtained from the vagina. A prescription for Kenalog 0.1% cream twice daily as needed for vulvar irritation or itching, will be sent to [facility] pharmacy in [facility]. 5. Osteoporosis prevention was discussed. I have stressed the importance of adequate calcium, vitamin D and regular exercise. Recommended amounts of calcium and vitamin D were also discussed. We will plan on repeating the bone density test in 1 year. 6. She was advised to return in one year for her annual well woman exam and as needed.
--- NOTE | 2025-01-21 11:57 | MM ---
Reason for Exam: Screening (asymptomatic). Last mammogram was performed 1 year(s) and 1 month(s) ago. Patient History: Menarche at age 12. First Full-Term at age 27. Postmenopausal. Patient has history of breast feeding. Hormonal Contraceptives for 12 years from age 15 until age 30. 2004, Cyst Aspiration on the Left side. Risk Values: Sonya 5 year model risk: 1.9%. NCI Lifetime model risk: 5.6%. Prior Study Comparison: 01/02/2024 Bilateral MG 3D screening mammo w/cad, [facility]. 01/05/2024 Left MG 3D work up w/cad LT, [facility]. 07/08/2024 Left MG 3D diag mammo w/cad LT, [facility]. Tissue Density: There are scattered areas of fibroglandular density. Findings: Analyzed By CAD. There is no suspicious group of microcalcifications or new suspicious mass in either breast. Overall Assessment: Negative, BI-RAD 1 Management: Screening Mammogram of both breasts in 1 year. . Patient should continue monthly self-breast exams. A clinical breast exam by your physician is recommended on an annual basis. This exam should not preclude additional follow-up of suspicious palpable abnormalities. Note on Sonya scores and lifetime risk: 1. A Sonya score greater than 3% is considered moderate risk. If this is the case, consider specialist referral to assess eligibility for a risk reducing agent. 2. If overall lifetime risk for the development of breast cancer is 20% or higher, the patient may qualify for future screening with alternating mammogram and breast MRI. [facility], , 01/21/2025 11:54 AM. Electronically signed and approved by: Hieu Radford M.D.
[2025-01-22 16:58] LABS: Gardnerella Positive (Negative); Trichomonas Negative (Negative)
--- NOTE | 2025-01-23 09:16 | P.PN ---
Progress Note - Text Progress Note Date: 01/23/25 OUTPATIENT FOLLOW-UP NOTE TEST(S)/RESULTS: Affirm vaginitis panel done on 01/21/2025 was negative for Malou and negative for trichomonas. It was positive for Gardnerella. METHOD OF NOTIFICATION: The patient was notified by phone on 01/23/2025. PATIENT COMMENTS: The patient states she did use the triamcinolone cream and did help with her symptoms. DIAGNOSIS: Bacterial vaginosis with vulvar irritation. DISCUSSION: She will be treated with metronidazole 500 mg p.o. twice daily x 7 days. The electronic prescription was sent to [facility] pharmacy in [facility]. She was advised to avoid drinking alcohol while taking this medication. She can still use the triamcinolone cream as needed as directed. She was instructed to call if she has any problems. PLAN: As above.
== END ==
LOC: WWCWWP 09:16
PROVIDERS: ATTEND Obstetrics & Gynecology
DX: Z01.419 Encounter for gynecological examination (general) (routine) without abnormal findings (principal); Z12.31 Encounter for screening mammogram for malignant neoplasm of breast; L29.2 Pruritus vulvae; N76.0 Acute vaginitis; N81.6 Rectocele; Z78.0 Asymptomatic menopausal state; Z87.39 Personal history of other diseases of the musculoskeletal system and connective tissue; Z88.2 Allergy status to sulfonamides; Z87.891 Personal history of nicotine dependence
CPT/HCPCS: 77063; 77067; 87480; 87510; 87660